=== PATIENT | female | born 1990 | race Two or more races ===

== ENCOUNTER 2022-04-14 14:06 | Outpatient (CLI) | payer OTHER | END 2022-04-14 15:20 | disposition home or self-care (01) | LOC: PRENATAL 14:06 | PROVIDERS: ATTEND Obstetrics & Gynecology Maternal & Fetal Medicine | DX: Z76.1 Encounter for health supervision and care of foundling (principal) ==

== ENCOUNTER 2022-05-24 09:51 | Outpatient (CLI) | payer OTHER | END 2022-05-24 10:59 | disposition home or self-care (01) | LOC: PRENATAL 09:51 | PROVIDERS: ATTEND Obstetrics & Gynecology Maternal & Fetal Medicine | DX: O35.9XX0 Maternal care for (suspected) fetal abnormality and damage, unspecified, not applicable or unspecified (principal); O35.3XX0 Maternal care for (suspected) damage to fetus from viral disease in mother, not applicable or unspecified; Z3A.20 20 weeks gestation of pregnancy ==

== ENCOUNTER 2022-08-17 09:14 | Outpatient (CLI) | payer OTHER | END 2022-08-17 09:51 | disposition home or self-care (01) | LOC: PRENATAL 09:14 | PROVIDERS: ATTEND Obstetrics & Gynecology Maternal & Fetal Medicine | DX: O26.82 Pregnancy related peripheral neuritis (principal); O36.8199 Decreased fetal movements, unspecified trimester, other fetus; Z3A.32 32 weeks gestation of pregnancy ==

== ENCOUNTER 2022-09-29 04:11 | Inpatient (IN) | payer OTHER ==
[~2022-09-29] VITALS: Ht 180.3 cm; Wt 108.9 kg
[2022-09-29] MEDS ORDERED: PRENATAL TABLE1 EAC4 PO (07:49)
[2022-10-01] MEDS ORDERED: COLACE100 MG PO (14:08)
[2022-10-01] MEDS ORDERED: IBU800 MG PO (14:08)
== END 2022-10-01 14:20 | disposition home or self-care (01) | DRG 807 ==
LOC: OBS/DEL 04:11 → LDR 06:53 → OB/GYN 06:53
PROVIDERS: ADMIT Obstetrics & Gynecology; ATTEND Obstetrics & Gynecology
PROC: 10E0XZZ Delivery of Products of Conception, External Approach (ICD-10-PCS; principal; 2022-09-29)
PROC: 0KQM0ZZ Repair Perineum Muscle, Open Approach (ICD-10-PCS; 2022-09-29)
PROC: 4A1HXCZ Monitoring of Products of Conception, Cardiac Rate, External Approach (ICD-10-PCS; 2022-09-29)
DX: O70.1 Second degree perineal laceration during delivery (principal); Z37.0 Single live birth; Z3A.38 38 weeks gestation of pregnancy; Z20.822 Contact with and (suspected) exposure to COVID-19